=== PATIENT | female | born 1990 | race American Indian/Alaskan Native ===

== ENCOUNTER 2020-06-01 14:01 | Emergency (ER) | payer OTHER ==
--- NOTE | 2020-06-01 15:13 | Emergency Department Report ---
ED Female HPI - General Chief complaint: Abdominal Pain Stated complaint: 6 WKS PREG VAG BLEEDING Time Seen by Provider: 06/01/20 15:09 Source: patient Mode of arrival: Ambulatory Limitations: No Limitations - History of Present Illness Initial comments: 30-year-old -[place] female presents to the emergency room for dysuria and vaginal discharge x2 weeks. Patient states that she is about 6 weeks . She thinks her last menstrual period was April 08, 2020. Patient states that she had a confirmatory test urine. Patient states that she has vaginal spotting and not filling up a pad just that she is using panty liner. Patient is three para two. She has not started care or [facility]. MD Complaint: vaginal bleeding, vaginal discharge, pelvic pain Onset/Timin -: week(s) Severity: mild Quality: burning Consistency: constant Improves with: none Worsens with: urination Are you Now?: Yes Last Menstrual Period: 04/09/20 EDC: 01/14/21 Associated Symptoms: vaginal discharge, vaginal bleeding, dysuria, hematuria. denies: nausea/vomiting, fever/chills - Related Data Sexually active: Yes : 3 Para: 2 Previous Rx's Medication Instructions Recorded Last Taken Type Nitrofurantoin [place]/M-Cryst 100 mg PO Q12HR 10 Days #20 capsule 06/01/20 Unknown Rx [Macrobid CAP] Vit-Fe Fumar-FA [ 1 tab PO QDAY #90 tablet 06/01/20 Unknown Rx Vitamin] Allergies Allergy/AdvReac Type Severity Reaction Status Date / Time No Known Allergies Allergy Unverified 06/01/20 15:14 ED Review of Systems ROS: Stated complaint: 6 WKS PREG VAG BLEEDING Other details as noted in HPI ED Past Medical Hx - Past Medical History Previous Medical History?: No - Surgical History Past Surgical History?: No - Social History Smoking Status: Never Smoker - Medications Home Medications: Home Medications Medication Instructions Recorded Confirmed Last Taken Type Nitrofurantoin [place]/M-Cryst 100 mg PO Q12HR 10 Days #20 capsule 06/01/20 Unknown Rx [Macrobid CAP] Vit-Fe Fumar-FA [ 1 tab PO QDAY #90 tablet 06/01/20 Unknown Rx Vitamin] ED Physical Exam - General Limitations: No Limitations ED Course Vital Signs 06/01/20 17:01 Temperature 97.6 F Pulse Rate 76 Respiratory 16 Rate Blood Pressure 108/89 [Right] O2 Sat by Pulse 100 Oximetry ED Medical Decision Making - Lab Data Result diagrams: 06/01/20 15:25 06/01/20 15:25 Laboratory Tests 06/01/20 06/01/20 06/01/20 15:25 15:25 15:25 WBC 5.9 RBC 4.12 Hgb 13.4 Hct 38.4 MCV 93 MCH 32 MCHC 35 H RDW 12.6 L Plt Count 198 Lymph % (Auto) 25.7 [place] % (Auto) 7.1 Eos % (Auto) 0.9 Baso % (Auto) 0.3 Lymph # (Auto) 1.5 [place] # (Auto) 0.4 Eos # (Auto) 0.1 Baso # (Auto) 0.0 Seg Neutrophils % 66.0 Seg Neutrophils # 3.9 Sodium 133 L Potassium 3.7 Chloride 99.6 Carbon Dioxide 27 Anion Gap 10 BUN 5 L Creatinine 0.6 Estimated GFR > 60 BUN/Creatinine Ratio 8 Glucose 92 Calcium 9.0 Total Bilirubin 0.30 AST 13 ALT 9 Alkaline Phosphatase 53 Total Protein 7.3 Albumin 4.2 Albumin/Globulin Ratio 1.4 HCG, Quant 30550 H Urine Color Urine Turbidity Urine pH Ur Specific [place] Urine Protein Urine Glucose (UA) Urine Ketones Urine Blood Urine Nitrite Urine Bilirubin Urine Urobilinogen Ur Leukocyte Esterase Urine WBC (Auto) Urine RBC (Auto) U Epithel Cells (Auto) Urine Bacteria (Auto) Hyaline Casts Urine Mucus Blood Type Ord Rhogam Gestat Weeks 06/01/20 06/01/20 15:25 15:26 WBC RBC Hgb Hct MCV MCH MCHC RDW Plt Count Lymph % (Auto) [place] % (Auto) Eos % (Auto) Baso % (Auto) Lymph # (Auto) [place] # (Auto) Eos # (Auto) Baso # (Auto) Seg Neutrophils % Seg Neutrophils # Sodium Potassium Chloride Carbon Dioxide Anion Gap BUN Creatinine Estimated GFR BUN/Creatinine Ratio Glucose Calcium Total Bilirubin AST ALT Alkaline Phosphatase Total Protein Albumin Albumin/Globulin Ratio HCG, Quant Urine Color Yellow Urine Turbidity Slightly-cloudy Urine pH 5.0 Ur Specific [place] 1.021 Urine Protein <15 mg/dl Urine Glucose (UA) Neg Urine Ketones Neg Urine Blood Neg Urine Nitrite Pos Urine Bilirubin Neg Urine Urobilinogen < 2.0 Ur Leukocyte Esterase Mod Urine WBC (Auto) 43.0 H Urine RBC (Auto) 3.0 U Epithel Cells (Auto) 4.0 Urine Bacteria (Auto) 1+ Hyaline Casts 1 Urine Mucus 2+ Blood Type B POSITIVE Ord Rhogam Gestat Weeks Rh pos - Radiology Data Radiology results: report reviewed Patient: CHRIS RENDON MR#: [id number] 2 : 1990 Acct:[id number] Age/Sex: 30 / F ADM Date: 06/01/20 Loc: ED Attending Dr: Ordering Physician: RIVERA VAZQUEZ Date of Service: 06/01/20 Procedure(s): US OB <= 14 weeks fetus Accession Number(s): [id number] cc: RIVERA VAZQUEZ ULTRASOUND OBSTETRIC INDICATION / CLINICAL INFORMATION: About 6 wks preg with spotting and pain. TECHNIQUE: Transabdominal. COMPARISON: None available. FINDINGS: GESTATIONAL SAC: Well-defined oval shape and intrauterine in location. YOLK SAC: No significant abnormality. EMBRYO/FETUS: No significant abnormality. - [place]-Rump Length = 0.98 cm = 7.0 weeks.days - Heart Rate, beats per minute (if present) = 148 ADNEXA: No significant abnormality. FREE FLUID: None. ADDITIONAL FINDINGS: None. IMPRESSION: 1. Single, living intrauterine with estimated sonographic age of 7.0 weeks.days. Signer Name: Paul Hare MD Signed: 06/01/2020 6:21 PM Workstation Name: [id number] Transcribed By: RYAN Dictated By: Paul Hare MD Electronically Authenticated By: Paul Hare MD Signed Date/Time: 06/01/201820 DD/ 19 TD/TT: - Medical Decision Making 30-year-old -[place] female presents to the emergency room for dysuria and vaginal discharge x2 weeks. Patient states that she is about 6 weeks . She thinks her last menstrual period was April 08, 2020. Patient states that she had a confirmatory test urine. Patient states that she has vaginal spotting and not filling up a pad just that she is using panty liner. Patient is three para two. She has not started care or [facility]. Critical care attestation.: If time is entered above; I have spent that time in minutes in the direct care of this critically ill patient, excluding procedure time. ED Disposition Clinical Impression: UTI (urinary tract infection) during Qualifiers: Trimester: first trimester Qualified Code(s): O23.41 - Unspecified infection of urinary tract in , first trimester Qualifiers: Weeks of gestation: less than 8 weeks Qualified Code(s): Z3A.01 - Less than 8 weeks gestation of Disposition: DC- TO HOME OR SELFCARE Is pt being admited?: No Does the pt Need Aspirin: No Condition: Stable Instructions: Abdominal Pain (ED), First Trimester of , [id number] Additional Instructions: Ultrasound shows you are 7 weeks . Your urinalysis shows that you have a urinary tract infection. I would like for you to complete your antibiotics. Tylenol is all you can take for pain. Increase your water intake. Start your vitamins and follow-up with [facility]. Prescriptions: Nitrofurantoin [place]/M-Cryst [Macrobid CAP] 100 mg PO Q12HR 10 Days #20 capsule Vit-Fe Fumar-FA [ Vitamin] 1 tab PO QDAY #90 tablet Referrals: [facility] [Primary Care Provider] - 3-5 Days [facility] [Provider Group] - 3-5 Days [facility] [Provider Group] - 3-5 Days [facility] [Provider Group] - 3-5 Days Forms: Work/School Release Form(ED)
[2020-06-01 15:46] LABS: Basophils % (Auto) 0.3 % (0.0-1.8); Eosinophils # (Auto) 0.1 K/mm3 (0.0-0.4); Eosinophils % (Auto) 0.9 % (0.0-4.3); Hematocrit 38.4 % (30.3-42.9); Hemoglobin 13.4 gm/dl (10.1-14.3); Lymphocytes # (Auto) 1.5 K/mm3 (1.2-5.4); Lymphocytes % (Auto) 25.7 % (13.4-35.0); Mean Corpuscular HGB Conc 35 % (30-34); Mean Corpuscular Volume 93 fl (79-97); Monocytes # (Auto) 0.4 K/mm3 (0.0-0.8); Monocytes % (Auto) 7.1 % (0.0-7.3); Platelet Count 198 K/mm3 (140-440); Red Blood Count 4.12 M/mm3 (3.65-5.03); Red Cell Distribution Width 12.6 % (13.2-15.2)
[2020-06-01 15:49] LABS: Bacteria,Urine 1+ /HPF (Negative); Bilirubin,Urine NEG (Negative); Blood,Urine NEG (Negative); Color,Urine Yellow (Yellow); Hyaline Casts,Urine 1 /LPF; Mucus,Urine 2+ /HPF; Protein,Urine <15 mg/dL mg/dL (Negative); Urobilinogen,Urine < 2.0 mg/dL (<2.0)
[2020-06-01 16:01] LABS: Alanine Aminotransferase 9 units/L (7-56); Albumin 4.2 g/dL (3.9-5); Blood Urea Nitrogen 5 mg/dL (7-17); Hemolysis Index 7
[2020-06-01 16:03] LABS: BUN/Creatinine Ratio 8
[2020-06-01 17:02] VITALS: BP 108/89
--- NOTE | 2020-06-01 18:26 | Ultrasound Report ---
ULTRASOUND OBSTETRIC INDICATION / CLINICAL INFORMATION: About 6 wks preg with spotting and pain. TECHNIQUE: Transabdominal. COMPARISON: None available. FINDINGS: GESTATIONAL SAC: Well-defined oval shape and intrauterine in location. YOLK SAC: No significant abnormality. EMBRYO/FETUS: No significant abnormality. - [place]-Rump Length = 0.98 cm = 7.0 weeks.days - Heart Rate, beats per minute (if present) = 148 ADNEXA: No significant abnormality. FREE FLUID: None. ADDITIONAL FINDINGS: None. IMPRESSION: 1. Single, living intrauterine with estimated sonographic age of 7.0 weeks.days. Signer Name: Paul Hare MD Signed: 06/01/2020 6:21 PM Workstation Name: [id number]
== END 2020-06-01 18:34 | disposition home or self-care (01) ==
LOC: ED 14:01
DX: O23.41 Unspecified infection of urinary tract in pregnancy, first trimester (principal); Z3A.01 Less than 8 weeks gestation of pregnancy; Z79.899 Other long term (current) drug therapy
CPT/HCPCS: 36415; 76801; 80053; 81001; 84702; 85025; 86900; 86901; 87086

== ENCOUNTER 2020-10-16 12:45 | Emergency (ER) | payer MEDICAID ==
[2020-10-16 13:47] VITALS: BP 100/75
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
[2020-10-16 16:27] LABS: Basophils % (Auto) 0.1 % (0.0-1.8); Eosinophils % (Auto) 0.3 % (0.0-4.3); Hematocrit 39.2 % (30.3-42.9); Hemoglobin 13.5 gm/dl (10.1-14.3); Lymphocytes # (Auto) 1.1 K/mm3 (1.2-5.4); Lymphocytes % (Auto) 12.3 % (13.4-35.0); Mean Corpuscular HGB Conc 35 % (30-34); Mean Corpuscular Volume 95 fl (79-97); Monocytes # (Auto) 0.7 K/mm3 (0.0-0.8); Monocytes % (Auto) 7.1 % (0.0-7.3); Platelet Count 195 K/mm3 (140-440); Red Blood Count 4.15 M/mm3 (3.65-5.03); Red Cell Distribution Width 12.8 % (13.2-15.2)
[2020-10-16 16:50] LABS: Bilirubin,Urine NEG (Negative); Blood,Urine MOD (Negative); Color,Urine Yellow (Yellow); Mucus,Urine 2+ /HPF; Protein,Urine <15 mg/dL mg/dL (Negative); Urobilinogen,Urine < 2.0 mg/dL (<2.0)
[2020-10-16 16:52] LABS: Alanine Aminotransferase 13 units/L (7-56); Albumin 4.3 g/dL (3.9-5); Blood Urea Nitrogen 9 mg/dL (7-17); Hemolysis Index 14
[2020-10-16 16:55] LABS: BUN/Creatinine Ratio 13
[2020-10-16] MEDS ORDERED: IBUPROFEN 800 MG TAB PO STA (18:01)
--- NOTE | 2020-10-17 14:17 | Electrocardiograph Report ---
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
== END 2020-10-16 19:30 | disposition left against medical advice (07) ==
LOC: ED 12:45
DX: M54.5 Low back pain (principal); R42 Dizziness and giddiness; Z53.21 Procedure and treatment not carried out due to patient leaving prior to being seen by health care provider
CPT/HCPCS: 36415; 80053; 81001; 84484; 85025; 93005